=== PATIENT | male | born 1970 | race Caucasian/White ===

== ENCOUNTER 2017-02-05 19:24 | Emergency (ER) | payer OTHER ==
[~2017-02-05] VITALS: Ht 182.9 cm; Wt 81.6 kg
[2017-02-05 19:52] VITALS: Ht 182.9 cm; Wt 81.6 kg
[2017-02-05 23:00] VITALS: BP 0/0
== END 2017-02-05 23:00 | disposition short-term general hospital (02) ==
LOC: ED 19:24
DX: I46.9 Cardiac arrest, cause unspecified (principal); K92.2 Gastrointestinal hemorrhage, unspecified; K70.9 Alcoholic liver disease, unspecified; E11.9 Type 2 diabetes mellitus without complications; F17.210 Nicotine dependence, cigarettes, uncomplicated